=== PATIENT | female | born 1970 | race Caucasian/White ===

== ENCOUNTER 2018-04-05 08:13 | Emergency (ER) | payer SELFPAY ==
--- NOTE | 2018-04-05 09:14 | ER Document Report ---
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 She states that the pain is in her bottom of her stump and shoots up to her leg. She is currently on Suboxone and takes gabapentin. Denies any drugs or alcohol use. She does cigarettes. She does have a small area that is abrasions where her prosthetic meets her stump and some redness around the area on her stump. - CONSTITUTIONAL Constitutional: DENIES: Fever, Chills - EENT EENT: DENIES: Sore Throat, Ear Pain, Eye problems - NEURO Neurology: DENIES: Headache, Weakness, Vision blurred, Dizzinesss / Vertigo - CARDIOVASCULAR Cardiovascular: DENIES: Chest pain - RESPIRATORY Respiratory: DENIES: Trouble Breathing, Coughing - GASTROINTESTINAL Gastrointestinal: DENIES: Abdominal Pain, Black / Bloody Stools - URINARY Urinary: DENIES: Dysuria, Urgency, Frequency - REPRODUCTIVE Reproductive: DENIES: : - MUSCULOSKELETAL Musculoskeletal: REPORTS: Extremity pain - L leg pain/ L BKA Past Medical History - Social History Smoking Status: Current Every Day Smoker Frequency of alcohol use: None Drug Abuse: Other - Patient is currently on Suboxone Family History: Reviewed & Not Pertinent Patient has suicidal ideation: No Patient has homicidal ideation: No Renal/ Medical History: Denies: Hx Peritoneal Dialysis Vertical Provider Document - CONSTITUTIONAL Agree With Documented VS: Yes Exam Limitations: No Limitations General Appearance: No Apparent Distress, Thin - INFECTION CONTROL TRAVEL OUTSIDE OF THE [place] IN LAST 30 DAYS: No - HEENT HEENT: Atraumatic, Normocephalic - NECK Neck: Normal Inspection - RESPIRATORY Respiratory: No Respiratory Distress - CARDIOVASCULAR Cardiovascular: Regular Rate Pulses: Normal: Brachial - MUSCULOSKELETAL/EXTREMETIES Musculoskeletal/Extremeties: FROM, Tender - Left stump - NEURO Level of Consciousness: Awake, Alert, Appropriate Motor/Sensory: No Motor Deficit, No Sensory Deficit - DERM Integumentary: Warm, Dry Notes: Cellulitis noted to end of left stump Course - Re-evaluation Re-evalutation: 04/05/18 09:15 The patient appears to have some cellulitis noted to her stump and an abrasion. She will be started on Keflex and follow-up with her primary care provider. I have a very low suspicion for any DVT, because there is obvious cellulitis to the area. She states she is out of her gabapentin and I will give her a few days worth of gabapentin she is to follow-up with her primary care provider. I told her that I will not give her any narcotic pain medication to go home with, because she is currently on Suboxone. Verbal discharge instructions were given to the patient. They verbalized understanding. They are stable for discharge. - Vital Signs Vital signs: Temp Pulse Resp BP Pulse Ox 98.1 F 103 H 20 127/91 H 96 04/05/18 08:21 04/05/18 08:21 04/05/18 08:21 04/05/18 08:21 04/05/18 08:21 Discharge - Discharge Clinical Impression: Stump pain Cellulitis Qualifiers: Site of cellulitis: unspecified site Qualified Code(s): L03.90 - Cellulitis, unspecified Condition: Stable Disposition: HOME, SELF-CARE Additional Instructions: You were seen today in the emergency department for stump pain. You have some cellulitis to the area, which is causing her pain. You have also been filled a few days of your gabapentin. Make sure you follow-up with your primary care provider to get more gabapentin. You may take your Suboxone for your pain. If you have worsening symptoms, develop a fever greater than 100.4 F, the redness spreads, or have any symptoms that are worrisome to you, please return to the emergency department. Prescriptions: Cephalexin Monohydrate [Keflex 500 mg Capsule] 500 mg PO Q6H 7 Days capsule Gabapentin [Neurontin 300 mg Capsule] 300 mg PO TID #20 capsule
[2018-04-05 09:53] VITALS: BP 120/65
== END 2018-04-05 09:53 | disposition home or self-care (01) ==
LOC: ER 08:13
DX: M79.605 Pain in left leg (principal); L03.116 Cellulitis of left lower limb; Z89.512 Acquired absence of left leg below knee; F17.200 Nicotine dependence, unspecified, uncomplicated
CPT/HCPCS: 99283

== ENCOUNTER 2018-10-13 01:49 | Emergency (ER) | payer MEDICARE, MEDICAID ==
[2018-10-13] MEDS ORDERED: IBUPROFEN 600 MG TABLET PO ONE (02:45)
--- NOTE | 2018-10-13 03:06 | ER Document Report ---
HPI - HPI Patient complains to provider of: Right hand pain Time Seen by Provider: 10/13/18 02:11 Pain Level: 2 Context: Patient is a 47-year-old female presents to the emergency department for right hand pain. Patient noted redness and swelling to the dorsal aspect of her right hand near her thumb as well as bruising to the right thenar eminence anteriorly. Patient states she felt a stinging sensation this evening and is unsure of any sort of trauma. Patient states she is unsure if she got bit by something. Patient's denying any fevers. Patient openly admits to IV drug use in the past but is denying any current IV drug use. Patient states she currently takes Ultram, gabapentin, Abilify - REPRODUCTIVE Reproductive: DENIES: : Past Medical History - General Information source: Patient - Social History Smoking Status: Current Every Day Smoker Family History: Reviewed & Not Pertinent Patient has suicidal ideation: No Patient has homicidal ideation: No Renal/ Medical History: Denies: Hx Peritoneal Dialysis Vertical Provider Document - CONSTITUTIONAL Agree With Documented VS: Yes Notes: GENERAL: Alert, interacts well. No acute distress. HEAD: Normocephalic, atraumatic. EYES: Pupils equal, round, and reactive to light. Extraocular movements intact. ENT: Oral mucosa moist, tongue midline. NECK: Full range of motion. Supple. Trachea midline. LUNGS: Clear to auscultation bilaterally, no wheezes, rales, or rhonchi. No respiratory distress. HEART: Regular rate and rhythm. No murmur ABDOMEN: Soft, non-tender. Non-distended. Bowel sounds present in all 4 quadrants. EXTREMITIES: Moves all 4 extremities spontaneously. normal radial and dorsalis pedis pulses bilaterally. BACK: no cervical, thoracic, lumbar midline tenderness. No saddle anesthesia, normal distal neurovascular exam. NEUROLOGICAL: Alert and oriented x3. Normal speech. cranial nerves II through XII grossly intact. PSYCH: Normal affect, normal mood. SKIN: Warm, dry, normal turgor. Ecchymosis noted right anterior thenar eminence, minor erythema noted posterior right hand near the base of the thumb. Swelling also noted to include thenar eminence and right thumb. Capillary refill less than 2 seconds distally all 5 fingers on the right hand. Full range of motion all 5 fingers on the right hand. Full range of motion right wrist. - INFECTION CONTROL TRAVEL OUTSIDE OF THE [place] IN LAST 30 DAYS: No Course - Re-evaluation Re-evalutation: 10/13/18 03:30 Hand X-Ray 10/13/18 02:45 IMPRESSION: No acute fracture or dislocation copyright 2011 [employer]- All Rights Reserved No signs of acute fracture on x-ray. Will treat for a cellulitic tissue. At this time will discharge with return precautions and follow-up recommendations. Verbal discharge instructions given a the bedside and opportunity for questions given. Medication warnings reviewed. Patient is in agreement with this plan and has verbalized understanding of return precautions and the need for primary care follow-up in the next 24-72 hours. This medical record was dictated with voice recognizing software. There may be grammatical, syntax errors that are unintended. - Vital Signs Vital signs: Temp Pulse Resp BP Pulse Ox 98.8 F 99 18 117/67 95 10/13/18 02:05 10/13/18 02:05 10/13/18 02:05 10/13/18 02:05 10/13/18 02:05 Discharge - Discharge Clinical Impression: Cellulitis of right hand Condition: Stable Disposition: HOME, SELF-CARE Instructions: Cellulitis ([facility]) Additional Instructions: As we discussed you have been seen and treated in the emergency department for cellulitis of your right hand. Please take antibiotics as prescribed. Please also follow-up with your primary care provider in the next 24 to 48 hours. Return to the emergency room for any further concerns. Prescriptions: Cephalexin Monohydrate [Keflex 500 mg Capsule] 500 mg PO BID 7 Days #14 capsule
--- NOTE | 2018-10-13 03:18 | RADIOLOGY REPORT (SQ) ---
EXAM DESCRIPTION: XR HAND 3 OR MORE VIEWS COMPLETED DATE/TME: 10/13/2018 02:45 CLINICAL HISTORY: 47 years, Female, pain COMPARISON: None. NUMBER OF VIEWS: Three TECHNIQUE: Three views of the right hand LIMITATIONS: None. FINDINGS: There is no acute fracture or dislocation. The joint spaces are preserved. No large soft tissue swelling. IMPRESSION: No acute fracture or dislocation copyright 2010 [employer]- All Rights Reserved
[2018-10-13] MEDS ORDERED: CEPHALEXIN 500 MG CAPSULE PO ONE (03:34)
[2018-10-13 03:45] VITALS: BP 123/81
== END 2018-10-13 03:45 | disposition home or self-care (01) ==
LOC: ER 01:49
DX: L03.113 Cellulitis of right upper limb (principal); R58 Hemorrhage, not elsewhere classified; M79.641 Pain in right hand; F17.200 Nicotine dependence, unspecified, uncomplicated; Z79.899 Other long term (current) drug therapy; Z79.891 Long term (current) use of opiate analgesic
CPT/HCPCS: 99282; 73130; A9270 ×2

== ENCOUNTER 2018-11-07 12:35 | Emergency (ER) | payer MEDICARE, MEDICAID ==
[2018-11-07 12:49] VITALS: BP 116/63
--- NOTE | 2018-11-07 12:50 | ER Document Report ---
ED Medical Screen (RME) - General Chief Complaint: Nausea Stated Complaint: NAUSEA Time Seen by Provider: 11/07/18 12:46 Mode of Arrival: Medic Information source: Patient Notes: 48-year-old female with history of BKA from an accident when she was 19 years old presents emergency department with complaints of abdominal pain and nausea and loose bowels for about a week. Denies fever and vomiting. Reports she was treated a couple weeks ago for bronchitis with a Z-Cedric. Denies past medical history of chronic abdominal issues. Reports history of cholecystectomy. Complains of generalized abdominal pain with palpation I have greeted and performed a rapid initial assessment of this patient. A comprehensive ED assessment and evaluation of the patient, analysis of test results and completion of the medical decision making process will be conducted by additional ED providers. Dictation of this chart was performed using voice recognition software; therefore, there may be some unintended grammatical errors. TRAVEL OUTSIDE OF THE [place] IN LAST 30 DAYS: No - Related Data Allergies/Adverse Reactions: alprazolam [From Xanax] Adverse Reaction (Verified 11/07/18 12:37) Past Medical History - Social History Chew tobacco use (# tins/day): No Frequency of alcohol use: None Drug Abuse: Marijuana Renal/ Medical History: Denies: Hx Peritoneal Dialysis Physical Exam - Vital signs Vitals: Temp Pulse Resp BP Pulse Ox 97.3 F 85 18 130/82 H 96 11/07/18 12:37 11/07/18 12:37 11/07/18 12:37 11/07/18 12:37 11/07/18 12:37 Course - Vital Signs Vital signs: Temp Pulse Resp BP Pulse Ox 97.3 F 85 18 130/82 H 96 11/07/18 12:37 11/07/18 12:37 11/07/18 12:37 11/07/18 12:37 11/07/18 12:37
== END 2018-11-07 13:10 | disposition left against medical advice (07) ==
LOC: ER 12:35
DX: R10.84 Generalized abdominal pain (principal); R11.0 Nausea; R19.4 Change in bowel habit; F12.10 Cannabis abuse, uncomplicated; Z53.20 Procedure and treatment not carried out because of patient's decision for unspecified reasons; Z90.49 Acquired absence of other specified parts of digestive tract
CPT/HCPCS: 99284